=== PATIENT | female | born 1950 ===

== ENCOUNTER 2017-08-19 00:46 | Day surgery (SDC) | payer MEDICARE, BC ==
[~2017-08-19] VITALS: Ht 165.1 cm; Wt 52.6 kg
[~2017-08-19 00:46] MED LIST: BIOT10006 PO; BUTA1TAB14 PO; CYAN1000 IJ; CYCL1DRO6 OP; DEN60I SUBQ; DICL100G39 TOP; DICY10AM2 PO; DOCU-442 PO; DOMPERIDONE PO; GABA-1 PO; HYDR-385 PO; HYDR20TA PO; LEVO50TA80 PO; MELA3TAB31 PO; MIRT45TA68 PO; OMEP40CA48 PO; PREN-127 PO; PROM25SU9 RC; [UNRECOGNIZED DRUG - OTHER] PO
[2017-08-19] MEDS: NORMOSOL R SOLN(*) 1000 ML BAG 1,000 ML IV PRN ×2 (10:42→14:04)
[2017-08-19 10:59] VITALS: BP 122/87
[2017-08-19] MEDS ORDERED: LIDOCAINE MPF 1% 5 ML VIAL ONE (12:11)
[2017-08-19] MEDS ORDERED: PROPOFOL EMUL(*) 10MG/ML 20 ML 20 ML ONE (12:11)
[2017-08-19] MEDS ORDERED: fentaNYL CITR 100 MCG/2 ML AMP ONE ×3 (12:35→14:26)
[2017-08-19] MEDS ORDERED: DEXAMETHASONE SOD 4 MG/ML VIAL ONE (12:44)
[2017-08-19] MEDS ORDERED: FAMOTIDINE 20 MG TAB PO ONE (12:45)
[2017-08-19] MEDS ORDERED: LIDOCAINE/SOD BICARB 8.4% SYR ID ONE (12:45)
[2017-08-19] MEDS ORDERED: ceFAZolin(*) 1 GM VIAL 1 GM in NS(*) 0.9% 100 ML ADDVANT BAG 100 ML IVPB ONE (12:45)
[2017-08-19] MEDS ORDERED: GENTAMICIN 80 MG/2 ML VIAL ONE (12:50)
[2017-08-19] MEDS ORDERED: ONDANSETRON 4 MG/2 ML VIAL ONE (13:02)
[2017-08-19] MEDS ORDERED: HYDROCORTISONE 1% CR 28.35 GM TP ONE (13:04)
[2017-08-19] MEDS ORDERED: CIPR-214 PO (14:04)
[2017-08-19] MEDS ORDERED: FAMO20TA28 PO (14:05)
[2017-08-19] MEDS ORDERED: KETOROLAC 15 MG/ML VIAL ONE (15:00)
[2017-08-19 15:12] VITALS: BP 134/82
[2017-08-19] MEDS ORDERED: HYDR-389 PO (15:22)
[2017-08-19 15:30] VITALS: BP 114/81
[2017-08-19 15:45] VITALS: BP 102/65
[2017-08-19 15:48] VITALS: BP 108/66
--- NOTE | 2017-08-19 18:47 | OPERATIVE REPORT 1 ---
EVENT DATE: August 19, 2017 SURGEON: Cesar Chaudhry MD ANESTHESIOLOGIST: Giovanny Quesada MD ANESTHESIA: General anesthetic. PREOPERATIVE DIAGNOSES 1. Difficulty with micturition. 2. Weak, slow, intermittent voiding. 3. Meatal stenosis. 4. Urethritis and trigonitis. 5. Recurrent urinary tract infections. POSTOPERATIVE DIAGNOSES 1. Difficulty with micturition. 2. Weak, slow, intermittent voiding. 3. Meatal stenosis. 4. Urethritis and trigonitis. 5. Recurrent urinary tract infections. PROCEDURES PERFORMED 1. Urethral calibration. 2. Urethral dilation. 3. Cystourethroscopy. 4. Peak hydrodistention of the bladder. 5. Betadine bladder irrigation. DESCRIPTION OF PROCEDURE Under general anesthetic, the patient was prepped and draped in the extended lithotomy position. The urethral meatus calibrated approximately 18- to 20-Tai[place]ese at the mouth of the meatus. No purulent material was expressed from the urethra. She has a second-degree cystourethrocele. Uterus was movable. The 21 panendoscope admitted through the urethra into the bladder. Urine was drained for urinalysis, culture, and sensitivity. Bladder filled under gravity flow was measured to a total of approximately 250 mL. On drainage of the bladder, there was a small amount of bleeding. On reinspection of the bladder, there were a few glomerulations on the dome of the bladder. Bladder was drained. Scope was withdrawn. A 22 urethral Aquino was placed into the bladder. Approximately 300 mL of Betadine solution was instilled into the bladder. The medication was left in contact with the bladder surface for approximately 10 minutes. The Aquino was removed. There was good efflux of Betadine solution on removal of the scope and a small amount of pressure on the bladder suprapubically. The scope was reintroduced. Betadine solution was irrigated clear from the bladder. Bladder was drained. Hydrocortisone cream was left per urethra. The catheter was left indwelling, to be removed in the recovery room. Patient tolerated the procedure satisfactorily and returned to the recovery room in satisfactory condition. This is a 66-year-old white female who is complaining of marked difficulties with micturition. She has small-cell neuropathy. Patient has a problem with recurrent infections. Patient has slow, difficult urination, intermittent. Patient states she only has only has a steady stream on the void in the mornings. In the remainder of the day, there is frequency in small amounts. She was evaluated preoperatively a few months ago and found to have meatal stenosis, urethritis, and trigonitis. I have followed the patient periodically on low-dose suppressive antibiotics to prevent infections, and that has been accomplished. However, the patient is experiencing increasing difficulty urinating. Her bladder capacity under local anesthetic on previous evaluation was approximately 400 mL. Options were discussed pretreatment, and she is in agreement for further evaluation and therapy. See operative note for details. She was found to have significant meatal stenosis and has been dilated to 34- Taiwanese. Plan followup in my office on 27 August 2017. Patient will be discharged home on her usual medications in addition to Cipro and Pepcid therapy. Patient is to continue her usual medications. [facility]
== END 2017-08-19 15:10 | disposition home or self-care (01) ==
LOC: OR 00:46
DX: R39.12 Poor urinary stream (principal); N35.9 Urethral stricture, unspecified; N34.2 Other urethritis; Z87.440 Personal history of urinary (tract) infections
CPT/HCPCS: 52281; 81001; 87088; A9270; J0690; J1100; J1580; J1885; J2001; J2405; J2704; J3010; J7050